=== PATIENT | female | born 1995 | race Hispanic/Latino ===

== ENCOUNTER 2017-12-09 13:04 | Emergency (ER) | payer OTHER ==
[2017-12-09] MEDS ORDERED: ACETAMINOPHEN 500 MG TAB ONE (14:24)
--- NOTE | 2017-12-09 14:26 | RAD REPORT ---
EXAM DESCRIPTION: VAS - Extremity Venous Uni Ltd - 12/09/2017 2:18 pm CLINICAL HISTORY: PAIN Leg swelling and edema. COMPARISON: <Comparisons> FINDINGS: Right lower extremity venous system was interrogated with Doppler technique. Normal flow, compressibility and augmentation was noted. There is no DVT present. IMPRESSION: No evidence of right lower extremity deep venous thrombosis.
--- NOTE | 2017-12-09 14:36 | EDPHYS ---
Physician Documentation [facility] Name: Juanis Chacon Age: 22 yrs Sex: Female : 1995 Arrival Date: 12/09/2017 Time: 13:09 Bed 16 Private MD: None, None ED Physician Marques Faulkner HPI: 12/09 14:00 This 22 yrs old Female presents to ER via Ambulatory with complaints of Right pm1 Leg Swelling. 14:00 The patient presents with pain, swelling. The complaints affect the right lower leg. pm1 Context: The problem was sustained at home, resulted from an unknown cause, Patient denies any trauma, the patient can fully bear weight, the patient is able to ambulate, Problem is a result from a previous injury: No. Onset: The symptoms/episode began/occurred 2 week(s) ago. Modifying factors: The symptoms are alleviated by nothing. the symptoms are aggravated by weight bearing. Associated signs and symptoms: Pertinent negatives calf tenderness, fever, numbness, tingling. Treatment prior to arrival includes: no previous treatment. Severity of symptoms: in the emergency department the symptoms have improved. The patient has not experienced similar symptoms in the past. Patient reports swelling to right lower leg that comes and goes for the past 2-3 weeks. Patient reports swelling is worse after working and being on her feet for extended time. Swelling and pain present only to right lower leg. JUVENILE COUNSELOR: 13:30 LMP 12/07/2017 em Historical: - Allergies: 14:00 No Known Allergies; em - Immunization history:: Adult Immunizations up to date, Pneumococcal vaccine is not up to date, Flu vaccine is not up to date. - Social history:: Smoking status: Patient/guardian denies using tobacco, never smoked. - Ebola Screening: : Patient negative for fever greater than or equal to 101.5 degrees Fahrenheit, and additional compatible Ebola Virus Disease symptoms. ROS: 14:00 Constitutional: Negative for fever, chills, and weight loss, Eyes: Negative for injury, pm1 pain, redness, and discharge, ENT: Negative for injury, pain, and discharge, Neck: Negative for injury, pain, and swelling, Cardiovascular: Negative for chest pain, palpitations, and edema, Respiratory: Negative for shortness of breath, cough, wheezing, and pleuritic chest pain, Abdomen/GI: Negative for abdominal pain, nausea, vomiting, diarrhea, and constipation, Back: Negative for injury and pain. 14:00 Skin: Negative for injury, rash, and discoloration, Neuro: Negative for headache, weakness, numbness, tingling, and seizure. 14:00 MS/extremity: Positive for pain, swelling, of the lateral aspect of right knee, right ankle and right calf, Negative for decreased range of motion, deformity. Exam: 14:00 Constitutional: This is a well developed, well nourished patient who is awake, alert, pm1 and in no acute distress. Head/Face: Normocephalic, atraumatic. Chest/axilla: Normal chest wall appearance and motion. Nontender with no deformity. No lesions are appreciated. Cardiovascular: Regular rate and rhythm with a normal S1 and S2. No gallops, murmurs, or rubs. No pulse deficits. Respiratory: Lungs have equal breath sounds bilaterally, clear to auscultation and percussion. No rales, rhonchi or wheezes noted. No increased work of breathing, no retractions or nasal flaring. Back: No spinal tenderness. No costovertebral tenderness. Full range of motion. Skin: Warm, dry with normal turgor. Normal color with no rashes, no lesions, and no evidence of cellulitis. 14:00 Musculoskeletal/extremity: Extremities: grossly normal except: noted in the right calf: tenderness, noted in the right ankle: tenderness, no evidence of decreased ROM, deformity, swelling. Vital Signs: 13:18 BP 130 / 69; Pulse 68; Resp 17; Temp 98.7; Pulse Ox 99% on R/A; Weight 99.79 kg; rk2 14:30 BP 106 / 72; Pulse 62; Resp 16; Pulse Ox 99% on R/A; Pain 7/10; em MDM: 13:16 Patient medically screened. pm1 14:32 Data reviewed: vital signs. Data interpreted: Pulse oximetry: on room air is 99 %. pm1 Interpretation: normal. Counseling: I had a detailed discussion with the patient and/or guardian regarding: the historical points, exam findings, and any diagnostic results supporting the discharge/admit diagnosis, radiology results, the need for outpatient follow up, to return to the emergency department if symptoms worsen or persist or if there are any questions or concerns that arise at home. 12/09 13:26 Order name: Extremity Venous Uni Ltd ; Complete Time: 14:31 pm1 Administered Medications: 14:25 Drug: Tylenol 500 mg Route: PO; em 14:40 Follow up: Response: No adverse reaction; Pain is decreased em Disposition: 12/10 08:01 Co-signature as Attending Physician, Marques Faulkner MD. Disposition: 12/09/17 14:36 Discharged to Home. Impression: Pain in right lower leg. - Condition is Stable. - Discharge Instructions: Edema, Musculoskeletal Pain. - Work release form, Medication Reconciliation Form, Thank You Letter form. - Follow up: Emergency Department; When: As needed; Reason: Worsening of condition. Follow up: Private Physician; When: As needed; Reason: Recheck today's complaints, Continuance of care, Re-evaluation by your physician. - Problem is new. - Symptoms have improved. Signatures: Dispatcher [employer] EDMS Grupo Blake, DIRECTOR OF SOFTWARE ENGINEERING DIRECTOR OF SOFTWARE ENGINEERING em Jordi Holliday, FURNACE COMBUSTION ANALYST FURNACE COMBUSTION ANALYST pm1 Marques Faulkner MD MD Marjorie Temple RN RN rk2 Corrections: (The following items were deleted from the chart) 12/09 14:58 14:36 12/09/2017 14:36 Discharged to Home. Impression: Pain in right lower leg. em Condition is Stable. Forms are Medication Reconciliation Form, Thank You Letter, Antibiotic Education, Prescription Opioid Use. Follow up: Emergency Department; When: As needed; Reason: Worsening of condition. Follow up: Private Physician; When: As needed; Reason: Recheck today's complaints, Continuance of care, Re-evaluation by your physician. Problem is new. Symptoms have improved. pm1
--- NOTE | 2017-12-09 14:36 | ER ---
Nurse's Notes [facility] Name: Juanis Chacon Age: 22 yrs Sex: Female : 1995 Arrival Date: 12/09/2017 Time: 13:09 Bed 16 Private MD: None, None Diagnosis: Pain in right lower leg Presentation: 12/09 13:15 Presenting complaint: Patient states: arrived by pv. c/o right knee and ankle rk2 pain/swelling x 2+ weeks. Denies trauma. Transition of care: patient was not received from another setting of care. Onset of symptoms was December 09, 2017. Risk Assessment: Do you want to hurt yourself or someone else? Patient reports no desire to harm self or others. Initial Sepsis Screen: Does the patient meet any 2 criteria? No. Patient's initial sepsis screen is negative. Does the patient have a suspected source of infection? No. Patient's initial sepsis screen is negative. Care prior to arrival: None. 13:15 Method Of Arrival: Ambulatory rk2 13:15 Acuity: PATRIC 4 rk2 SKILLED NURSING FACILITIES PROFESSIONAL: 13:30 LMP 12/07/2017 em Historical: - Allergies: 14:00 No Known Allergies; em - Immunization history:: Adult Immunizations up to date, Pneumococcal vaccine is not up to date, Flu vaccine is not up to date. - Social history:: Smoking status: Patient/guardian denies using tobacco, never smoked. - Ebola Screening: : Patient negative for fever greater than or equal to 101.5 degrees Fahrenheit, and additional compatible Ebola Virus Disease symptoms. Screenin:35 Abuse screen: Denies threats or abuse. Nutritional screening: No deficits noted. em Tuberculosis screening: No symptoms or risk factors identified. Fall Risk None identified. Assessment: 13:26 General: Appears in no apparent distress. comfortable, Behavior is calm, cooperative. em Pain: Complains of pain in right knee and anterior aspect of right ankle Pain currently is 8 out of 10 on a pain scale. Pain began 2 weeks. Neuro: Level of Consciousness is awake, alert, obeys commands, Oriented to person, place, time, situation. Cardiovascular: Capillary refill < 3 seconds Patient's skin is warm and dry. Cardiovascular: Denies chest pain. Respiratory: Airway is patent Respiratory effort is even, unlabored, Respiratory pattern is regular, symmetrical, Denies shortness of breath. GI: Abdomen is round non-distended. : No signs and/or symptoms were reported regarding the genitourinary system. EENT: No signs and/or symptoms were reported regarding the EENT system. Derm: Skin is intact, Skin is pink, warm \T\ dry. Musculoskeletal: Range of motion: intact in all extremities. 13:32 General: The previous assessment is accurate, call light remains within reach. . ss Vital Signs: 13:18 BP 130 / 69; Pulse 68; Resp 17; Temp 98.7; Pulse Ox 99% on R/A; Weight 99.79 kg; rk2 14:30 BP 106 / 72; Pulse 62; Resp 16; Pulse Ox 99% on R/A; Pain 7/10; em ED Course: 13:09 Patient arrived in ED. sb2 13:09 None, None is Private Physician. sb2 13:16 Jordi Holliday NP is PHCP. pm1 13:16 Marques Faulkner MD is Attending Physician. pm1 13:17 Triage completed. rk2 13:20 Grupo Blake LVN is Primary Nurse. em 13:35 Patient has correct armband on for positive identification. Bed in low position. Call em light in reach. Adult w/ patient. 13:35 No provider procedures requiring assistance completed. Patient did not have IV access em during this emergency room visit. 13:38 Arm band placed on. em 13:57 Ultrasound completed. Patient tolerated well. sg3 14:18 Extremity Venous Uni Ltd US In Process Unspecified. EDMS Administered Medications: 14:25 Drug: Tylenol 500 mg Route: PO; em 14:40 Follow up: Response: No adverse reaction; Pain is decreased em Outcome: 14:36 Discharge ordered by MD. pm1 14:56 Discharged to home ambulatory. em 14:56 Condition: good 14:56 Discharge instructions given to patient, Instructed on discharge instructions, follow up and referral plans. Demonstrated understanding of instructions, follow-up care. 14:58 Patient left the ED. em Signatures: Dispatcher [employer] EDMS Grupo Blake LVN LVN em Sabiha Darby RN RN Jordi Holliday NP SENIOR PHP SOFTWARE DEVELOPER pm1 Kate Joyce sg3 Marjorie Temple RN RN rk2 Tigist Barroso sb2
== END 2017-12-09 14:58 | disposition home or self-care (01) ==
LOC: ER 13:04
DX: M79.661 Pain in right lower leg (principal)
CPT/HCPCS: 93971; 99283

== ENCOUNTER 2017-12-29 12:19 | Emergency (ER) | payer OTHER ==
--- NOTE | 2017-12-29 14:13 | RAD REPORT ---
EXAM DESCRIPTION: RAD - Ankle Right 3 View - 12/29/2017 2:03 pm CLINICAL HISTORY: Right ankle pain status post fall FINDINGS: No fracture or dislocation is seen.
--- NOTE | 2017-12-29 14:14 | ER ---
Nurse's Notes [facility] Name: Juanis Chacon Age: 22 yrs Sex: Female : 1995 Arrival Date: 12/29/2017 Time: 12:21 Bed 9 Private MD: None, None Diagnosis: Sprain of ankle-Right Presentation: 12/29 12:53 Presenting complaint: Patient states: fall and hurt right ankle 3 days ago, feels like iw spasms, has mild swelling. Transition of care: patient was not received from another setting of care. Onset of symptoms was December 27, 2017. Risk Assessment: Do you want to hurt yourself or someone else? Patient reports no desire to harm self or others. Initial Sepsis Screen: Does the patient meet any 2 criteria? No. Patient's initial sepsis screen is negative. Does the patient have a suspected source of infection? No. Patient's initial sepsis screen is negative. Care prior to arrival: None. 12:53 Method Of Arrival: Ambulatory iw 12:53 Acuity: PATRIC 4 iw Triage Assessment: 15:00 General: Appears in no apparent distress. Behavior is calm, cooperative. iw DORMITORY COUNSELOR: 12:54 LMP 12/15/2017 iw Historical: - Allergies: 12:55 Bromfed DM; iw - Home Meds: 12:55 None [Active]; iw - PMHx: 12:55 None; iw - PSHx: 12:55 None; iw - Immunization history:: Adult Immunizations not up to date. - Social history:: Smoking status: Patient/guardian denies using tobacco. - Ebola Screening: : Patient negative for fever greater than or equal to 101.5 degrees Fahrenheit, and additional compatible Ebola Virus Disease symptoms Patient denies exposure to infectious person Patient denies travel to an Ebola-affected area in the 21 days before illness onset No symptoms or risks identified at this time. Screenin:00 Abuse screen: Denies threats or abuse. Denies injuries from another. Nutritional iw screening: No deficits noted. Tuberculosis screening: No symptoms or risk factors identified. Fall Risk None identified. Assessment: 14:30 General: Appears in no apparent distress. comfortable, Behavior is calm, cooperative. iw Pain: Complains of pain in right lateral malleolus and right medial malleolus Pain currently is 8 out of 10 on a pain scale. Neuro: Level of Consciousness is awake, alert, obeys commands, Oriented to person, place, time, situation, Moves all extremities. Full function. Cardiovascular: Capillary refill < 3 seconds in bilateral fingers Patient's skin is warm and dry. Respiratory: Respiratory effort is even, unlabored, Respiratory pattern is regular. Derm: Skin is pink, warm \T\ dry. normal. Musculoskeletal: Range of motion: intact in all extremities. Vital Signs: 12:54 BP 134 / 60; Pulse 61; Resp 18; Temp 98.1(O); Pulse Ox 100% on R/A; Weight 95.25 kg; iw Height 5 ft. 1 in. (154.94 cm); Pain 8/10; 12:54 Body Mass Index 39.68 (95.25 kg, 154.94 cm) iw ED Course: 12:21 Patient arrived in ED. mr 12:21 None, None is Private Physician. mr 12:54 Triage completed. iw 12:54 Arm band placed on. iw 12:55 Kelsi Golden RN is Primary Nurse. iw 12:58 Wade Soriano PA is PHCP. cp 12:58 Dusty Nunn MD is Attending Physician. cp 14:03 Ankle Right 3 View XRAY In Process Unspecified. EDMS 14:12 Felipe Beverly MD is Referral Physician. cp 14:30 Patient has correct armband on for positive identification. iw 15:10 No provider procedures requiring assistance completed. Patient did not have IV access iw during this emergency room visit. Administered Medications: No medications were administered Outcome: 14:13 Discharge ordered by MD. cp 15:10 Discharged to home ambulatory, with crutches, with family. iw 15:10 Condition: good 15:10 Discharge instructions given to patient, Instructed on discharge instructions, follow up and referral plans. crutch walking, Demonstrated understanding of instructions, follow-up care, crutch walking, Prescriptions given X 1. 15:11 Patient left the ED. iw Signatures: Dispatcher [employer] Elida Newsome mr Kelsi Golden, RN RN iw Wade Soriano PA PA cp
--- NOTE | 2017-12-29 14:14 | EDPHYS ---
Physician Documentation [facility] Name: Juanis Chacon Age: 22 yrs Sex: Female : 1995 Arrival Date: 12/29/2017 Time: 12:21 Bed 9 Private MD: None, None ED Physician Dusty Nunn HPI: 12/29 13:04 This 22 yrs old Female presents to ER via Ambulatory with complaints of Ankle cp Injury. 13:04 The patient presents with an injury, pain, that is acute. The complaints affect the cp right ankle. Onset: The symptoms/episode began/occurred 3 day(s) ago. Context: resulted from fall, The mechanism of injury involved inversion of the affected ankle. The patient can fully bear weight on the affected extremity. the patient is able to ambulate, with mild difficulty. Associated signs and symptoms: Pertinent negatives: calf tenderness, numbness, weakness. Modifying factors: the symptoms are aggravated by weight bearing. ADMISSIONS RN: 12:54 LMP 12/15/2017 iw Historical: - Allergies: 12:55 Bromfed DM; iw - Home Meds: 12:55 None [Active]; iw - PMHx: 12:55 None; iw - PSHx: 12:55 None; iw - Immunization history:: Adult Immunizations not up to date. - Social history:: Smoking status: Patient/guardian denies using tobacco. - Ebola Screening: : Patient negative for fever greater than or equal to 101.5 degrees Fahrenheit, and additional compatible Ebola Virus Disease symptoms Patient denies exposure to infectious person Patient denies travel to an Ebola-affected area in the 21 days before illness onset No symptoms or risks identified at this time. ROS: 13:10 Constitutional: Negative for body aches, chills, fever, poor PO intake. cp 13:10 Eyes: Negative for injury, pain, redness, and discharge. cp 13:10 ENT: Negative for drainage from ear(s), ear pain, sore throat, difficulty swallowing, difficulty handling secretions. 13:10 Neck: Negative for pain with movement, pain at rest, stiffness, tenderness. 13:10 Cardiovascular: Negative for chest pain, palpitations. 13:10 Respiratory: Negative for cough, shortness of breath, wheezing. 13:10 Abdomen/GI: Negative for abdominal pain, nausea, vomiting, and diarrhea. 13:10 MS/extremity: Positive for pain, tenderness, of the right ankle, Negative for decreased range of motion, deformity, paresthesias. 13:10 Skin: Negative for cellulitis, rash. 13:10 Neuro: Negative for headache, numbness, tingling, weakness. 13:10 All other systems are negative. Exam: 13:20 Constitutional: The patient appears in no acute distress, alert, awake, well developed, cp well nourished. 13:20 Head/Face: Normocephalic, atraumatic. cp 13:20 Eyes: Periorbital structures: appear normal, Conjunctiva: normal, no exudate, no injection, Lids and lashes: appear normal, bilaterally. 13:20 ENT: External ear(s): are unremarkable, Nose: is normal, Mouth: is normal, Posterior pharynx: is normal, airway is patent. 13:20 Chest/axilla: Inspection: normal. 13:20 Cardiovascular: Rate: normal. 13:20 Respiratory: the patient does not display signs of respiratory distress, Respirations: normal, no use of accessory muscles, no retractions, no splinting, no tachypnea. 13:20 Musculoskeletal/extremity: Extremities: grossly normal except: noted in the lateral right ankle: tenderness, There is no evidence of decreased ROM, deformity, Perfusion: the extremity is normally perfused throughout, Sensation intact. 13:20 Skin: cellulitis, is not appreciated, no rash present. Vital Signs: 12:54 BP 134 / 60; Pulse 61; Resp 18; Temp 98.1(O); Pulse Ox 100% on R/A; Weight 95.25 kg; iw Height 5 ft. 1 in. (154.94 cm); Pain 8/10; 12:54 Body Mass Index 39.68 (95.25 kg, 154.94 cm) iw MDM: 12:58 Patient medically screened. cp 14:12 Data reviewed: vital signs, nurses notes, radiologic studies, plain films. 12/29 13:06 Order name: Ankle Right 3 View XRAY; Complete Time: 14:14 cp 12/29 14:15 Interpretation: Report reviewed. 12/29 14:09 Order name: Crutches; Complete Time: 14:57 cp 12/29 14:09 Order name: Aircast Ankle Splint; Complete Time: 14:53 cp Administered Medications: No medications were administered Disposition: 12/29/17 14:13 Discharged to Home. Impression: Sprain of ankle - Right. - Condition is Stable. - Discharge Instructions: Elastic Bandage and RICE, Ankle Sprain. - Prescriptions for Naprosyn 500 mg Oral Tablet - take 1 tablet by ORAL route 2 times per day take with food; 20 tablet. - Work release form, Medication Reconciliation Form, Thank You Letter, Antibiotic Education, Prescription Opioid Use form. - Follow up: Felipe Beverly MD; When: 5 - 6 days; Reason: pain continues. - Problem is new. - Symptoms have improved. Addendum: 01/06/2018 20:42 Co-signature as Attending Physician, Dusty Nunn MD I agree with the assessment and [facility] plan of care. Signatures: Dispatcher [employer] EDMS Dusty Nunn MD MD kdr Kelsi Golden RN RN iw Wade Soriano PA PA cp Corrections: (The following items were deleted from the chart) 12/29 15:11 14:13 12/29/2017 14:13 Discharged to Home. Impression: Sprain of ankle - Right. iw Condition is Stable. Forms are Medication Reconciliation Form, Thank You Letter, Antibiotic Education, Prescription Opioid Use. Follow up: Felipe Beverly; When: 5 - 6 days; Reason: pain continues. Problem is new. Symptoms have improved. cp
== END 2017-12-29 15:11 | disposition home or self-care (01) ==
LOC: ER 12:19
DX: S93.401A Sprain of unspecified ligament of right ankle, initial encounter (principal); X58.XXXA Exposure to other specified factors, initial encounter; Y93.9 Activity, unspecified; Y92.9 Unspecified place or not applicable; Z88.8 Allergy status to other drugs, medicaments and biological substances
CPT/HCPCS: 99283

== ENCOUNTER 2018-02-13 08:35 | Emergency (ER) | payer OTHER ==
--- OUTSIDE RECORDS SUMMARY | 2018-02-13 08:36 | XMS REPORT ---
:1995 Author Organization [employer] Care Team Providers Name Role Phone Ulises Easleyswinder Provider Role Unavailable Allergies, Adverse Reactions, Alerts Substance Reaction Event Type N.K.D.A. Info Not Available Non Drug Allergy Problems Problem Type Condition Code Onset Dates Condition Status Assessment Encounter to determine O36.80X0 Active viability of , single or unspecified fetus Assessment Encounter for gynecological Z01.419 Active examination without abnormal finding Assessment Well woman exam with routine Z01.419 Active gynecological exam Assessment Body mass index (BMI) of 40.1 to Z68.41 Active 44.9 in adult Assessment Diabetes mellitus affecting O24.911 Active in first trimester Assessment Encounter for supervision of Z34.01 Active normal first in first trimester Problem Encounter for supervision of Z34.01 Active normal first in first trimester Problem Encounter for gynecological Z01.419 Active examination without abnormal finding Problem Well woman exam with routine Z01.419 Active gynecological exam Problem Encounter to determine O36.80X0 Active viability of , single or unspecified fetus Problem Body mass index (BMI) of 40.1 to Z68.41 Active 44.9 in adult Problem Diabetes mellitus affecting O24.911 Active in first trimester Medications No Known Medications Results Name Result Date Reference Range Unit Abnormality Flag TEST URINE ----RESULTS POS 20171231 URINALYSIS AUTO W/O SCOPE (33000) ----PROTEIN NEG 20171231 ----pH 6.5 20171231 ----NIT NEG 20171231 ----GAURAV NEG 20171231 ----URO 0.2 20171231 ----SPECIFIC GRAVITY 1.020 20171231 ----BLO NEG 20171231 ----BILIRUBIN NEG 20171231 ----KETONES NEG 20171231 ----GLUCOSE 2+ 20171231 Summary Purpose [employer] Submission
--- OUTSIDE RECORDS SUMMARY | 2018-02-13 08:37 | XMS REPORT ---
:1995 Author Organization [employer] Care Team Providers Name Role Phone Oneyda Marie Provider Role Unavailable Allergies, Adverse Reactions, Alerts Substance Reaction Event Type Bromfed throw up blood Drug Allergy Spinach hives Non Drug Allergy Problems Problem Type Condition Code Onset Dates Condition Status Assessment Pre-existing type 2 diabetes O24.111 Active mellitus during in first trimester Problem Encounter for supervision of Z34.01 Active normal first in first trimester Assessment Body mass index (BMI) of 40.0-44.9 Z68.41 Active in adult Assessment Morbid (severe) obesity due to E66.01 Active excess calories Problem Body mass index (BMI) of 40.0-44.9 Z68.41 Active in adult Problem Body mass index (BMI) of 40.1 to Z68.41 Active 44.9 in adult Problem Morbid (severe) obesity due to E66.01 Active excess calories Problem Encounter for gynecological Z01.419 Active examination without abnormal finding Problem Well woman exam with routine Z01.419 Active gynecological exam Problem Diabetes mellitus affecting O24.911 Active in first trimester Problem Encounter to determine O36.80X0 Active viability of , single or unspecified fetus Medications Medication Code Code Instructions Start End Status Dosage System Date Date NovoLIN N ND [id number] 100 UNIT/ML January 03, Active 7 units bid ReliOn Subcutaneous BID 2017 BD Insulin [facility] [id number] 31G X 5/16" 0.3 January 03, Active as directed Syringe ML SubQ BID 2018 Half-Unit [facility] [id number] 28-0.8 MG Orally Active 1 tablet Once a day Results No Known Results Summary Purpose [employer] Submission
--- OUTSIDE RECORDS SUMMARY | 2018-02-13 08:37 | XMS REPORT ---
:1995 Author Organization [employer] Care Team Providers Name Role Phone Wesley Easley Provider Role Unavailable Allergies No Known Allergies Problems Problem Type Condition Code Onset Dates Condition Status Problem Encounter for supervision of Z34.01 Active [...] affecting O24.911 Active in first trimester Medications Medication Code Code Instructions Start End Status Dosage System Date Date CitraNatal 90 [facility] [id number] 90-1 & 300 MG January 04, Active as directed DHA Orally once a 2017 DAY Results No Known Results Summary Purpose [employer] Submission
--- OUTSIDE RECORDS SUMMARY | 2018-02-13 08:37 | XMS REPORT ---
:1995 Author Organization eClinicalWorks Care Team Providers Name Role Phone Oneyda Marie Provider Role Unavailable Allergies, Adverse Reactions, Alerts Substance Reaction Event Type Bromfed throw up blood Drug Allergy Spinach hives Non Drug Allergy Problems Problem Type Condition Code Onset Dates Condition Status Problem Diabetes mellitus affecting O24.911 Active in first trimester Problem Encounter to determine O36.80X0 Active viability of , single or unspecified fetus Assessment Diabetes mellitus affecting O24.911 Active in first trimester Assessment Type 2 diabetes mellitus without E11.9 Active complication, without long-term current use of insulin Problem Body mass index (BMI) of 40.0-44.9 Z68.41 Active in adult Problem Morbid (severe) obesity due to E66.01 Active excess calories Problem Type 2 diabetes mellitus without E11.9 Active complication, without long-term current use of insulin Problem Encounter for supervision of Z34.01 Active normal first in first trimester Problem Body mass index (BMI) of 40.1 to Z68.41 Active 44.9 in adult Problem Encounter for gynecological Z01.419 Active examination without abnormal finding Problem Well woman exam with routine Z01.419 Active gynecological exam Medications Medication Code Code Instructions Start End Status Dosage System Date Date CitraNatal 90 [facility] [id number] 90-1 & 300 MG January 04, Active as directed DHA Orally once a 2018 DAY BD Insulin ND 67294974663 31G X 5/16 SubQ January 03, Active as directed Syringe BID 2018 Half-Unit NovoLIN N ND 40010171192 100 UNIT/ML January 03, Active 7 units bid ReliOn Subcutaneous BID 2018 [facility] 36602212833 28-0.8 MG Orally Active 1 tablet Once a day Results No Known Results Summary Purpose [employer]ClinicalWorks Submission
--- OUTSIDE RECORDS SUMMARY | 2018-02-13 08:37 | XMS REPORT ---
:1995 Author Organization eClinicalWorks Care Team Providers Name Role Phone Wesley Easley Provider Role Unavailable Allergies No Known Allergies Problems Problem Type Condition Code Onset Dates Condition Status Problem Encounter for supervision of Z34.01 Active normal first in first trimester Problem Body mass index (BMI) of 40.0-44.9 [...] of , single or unspecified fetus Medications No Known Medications Results No Known Results Summary Purpose [employer] Submission
--- OUTSIDE RECORDS SUMMARY | 2018-02-13 08:37 | XMS REPORT ---
:1995 Author Organization e[employer]Works Care Team Providers Name Role Phone HunnewellSavanna pikey Provider Role Unavailable Allergies, Adverse Reactions, Alerts Substance Reaction Event Type Bromfed throw up blood Drug Allergy Spinach hives Non Drug Allergy Problems Problem Type Condition Code Onset Dates Condition Status Problem Diabetes mellitus affecting O24.911 Active in first trimester Problem Encounter to determine O36.80X0 Active viability of , single or unspecified fetus Assessment Type 2 diabetes mellitus without E11.9 Active complication, without long-term current use of insulin Assessment Diabetes mellitus affecting O24.911 Active in first trimester Problem Body mass index [...] Status Dosage System Date Date NovoLIN N [facility] [id number] 100 UNIT/ML January 03, Active 13 units ReliOn Subcutaneous 2018 bid BID CitraNatal [address] [facility] [id number] 90-1 & 300 MG January 04, Active as directed DHA Orally once a 2018 DAY ND 76265642690 28-0.8 MG Active 1 tablet Orally Once a day BD Insulin ND 64843655453 31G X 16 SubQ January 03, Active as directed Syringe BID 2018 Half-Unit Results No Known Results Summary Purpose eClinicalWorks Submission
--- OUTSIDE RECORDS SUMMARY | 2018-02-13 08:37 | XMS REPORT ---
:1995 Author Organization eClinicalWorks Care Team Providers Name Role Phone Wesley Easley Provider Role Unavailable Allergies, Adverse Reactions, Alerts Substance Reaction Event Type Spinach hives Non Drug Allergy Problems Problem Type Condition Code Onset Dates Condition Status Problem Diabetes mellitus affecting O24.911 Active in first trimester Problem Encounter to determine O36.80X0 Active viability of , single or unspecified fetus Problem Body mass index (BMI) of 40.0-44.9 [...] with routine Z01.419 Active gynecological exam Assessment Morbid (severe) obesity due to E66.01 Active excess calories Assessment Body mass index (BMI) of 40.1 to Z68.41 Active 44.9 in adult Assessment Diabetes mellitus affecting O24.911 Active in first trimester Assessment Type 2 diabetes mellitus without E11.9 Active complication, without long-term current use of insulin Assessment Encounter for supervision of Z34.01 Active normal first in first trimester Medications Medication Code System Code Instructions Start Date End Date Status Dosage NDC 0 Active not defined Results No Known Results Summary Purpose [employer] Submission
--- OUTSIDE RECORDS SUMMARY | 2018-02-13 08:37 | XMS REPORT ---
:1995 Author Organization eClinicalWorks Care Team Providers Name Role Phone Oneyda Marie Provider Role Unavailable Allergies No Known Allergies [...] Medications Results No Known Results Summary Purpose [employer]ClinicalWorks Submission
[2018-02-13 09:54] LABS: Absolute Lymphocytes (CBC) 1.9 K/uL (0.7-4.9); Absolute Monocytes 0.5 K/uL (0.1-1.3); Absolute Neutrophil 6.9 K/uL (1.8-8.0); Basophils % 0.3 % (0-1.3); Eosinophils % 1.3 % (0-4.4); Hematocrit 39.8 % (36.0-45.0); Lymphocytes % 20.4 % (15.3-44.8); MCH 30.3 pg (27.0-35.0); MCV 88.7 fL (80-100); Monocytes % 5.4 % (3.3-12.3); RBC Red Blood Cell Count 4.49 M/uL (3.86-4.86)
[2018-02-13 10:16] LABS: Urine Blood NEGATIVE (NEG); Urine Glucose TRACE (NEG); Urine Protein NEGATIVE (NEG); Urine Specific Gravity 1.025 (1.005-1.030)
--- NOTE | 2018-02-13 10:21 | RAD REPORT ---
EXAM DESCRIPTION: US - Transvaginal OB - 02/13/2018 9:40 am CLINICAL HISTORY: Abdominal pain, pelvic pain, spotting, positive COMPARISON: January 18 FINDINGS: Uterus measures 11 x 7 x 7.5 cm. No myometrial mass. Single intrauterine gestation is iden tified. Amagon-rump length measurement corresponds to 11 weeks 0 days. Calculated MARCY is 09/04/2018. H eart rate is 175 BPM. No gross abnormality seen. No hematoma or mass within the endometrial cav ity. Cervical canal appears to be closed. Trace amount of free fluid is present in the cul-de-sac not regarded as significant. Both ovaries are identifiable. Doppler evaluation shows blood flow within the ovarian stroma. No suspicious adnexal f inding. IMPRESSION: Single 11 week 0 day IUP showing appropriate growth since the January 18 study. Heart rate is normal. Calculated MARCY is 09/04/2018. No hematoma, mass or other suspicious intrauterine or adnexal finding.
--- NOTE | 2018-02-13 10:26 | EDPHYS ---
Physician Documentation [facility] Name: Juanis Chacon Age: 22 yrs Sex: Female : 1995 Arrival Date: 02/13/2018 Time: 08:38 Bed 17 Private MD: None, None ED Physician Juan Cuellar HPI: 02/13 08:59 This 22 yrs old Female presents to ER via Ambulatory with complaints of jr8 Vaginal Bleeding, + Preg <12wks, Abdominal Pain. 08:59 The patient presents to the emergency department with abdominal pain, of the lower, jr8 that started yesterday, described as crampy, vaginal bleeding, described as spotting. The estimated gestational age is 11 weeks. course: care: private OB physician, Leakage of Fluid: none appreciated. Associated signs and symptoms: The patient has no apparent associated signs or symptoms. The patient has experienced a previous episode. Patient has history of miscarriage in past. Has had cramping since yesterday. Now with spotting. ONLINE EDUCATION MANAGER: 08:55 LMP 11/17/2017 tw2 08:59 2, Full Term 0, Premature 0, 1, Living 0 jr8 Historical: - Allergies: 08:57 Bromfed DM; tw2 08:57 Pseudoephedrine; tw2 08:57 dextromethorphan; tw2 - Home Meds: 08:57 Novolin N 100 unit/mL Sub-Q susp [Active]; "unknown insulin" [Active]; tw2 - PMHx: 08:57 Diabetes - IDDM; tw2 - PSHx: 08:57 None; tw2 - Immunization history:: Adult Immunizations up to date. - Social history:: Smoking status: Patient/guardian denies using tobacco. - Ebola Screening: : Patient denies travel to an Ebola-affected area in the 21 days before illness onset. ROS: 08:59 Eyes: Negative for injury, pain, redness, and discharge, ENT: Negative for injury, jr8 pain, and discharge, Neck: Negative for injury, pain, and swelling, Cardiovascular: Negative for chest pain, palpitations, and edema, Respiratory: Negative for shortness of breath, cough, wheezing, and pleuritic chest pain, Abdomen/GI: Negative for abdominal pain, nausea, vomiting, diarrhea, and constipation, Back: Negative for injury and pain, MS/Extremity: Negative for injury and deformity, Skin: Negative for injury, rash, and discoloration, Neuro: Negative for headache, weakness, numbness, tingling, and seizure. 08:59 : Positive for pelvic pain, vaginal bleeding, Negative for urinary symptoms, vaginal discharge, vaginal itching. Exam: 08:59 Eyes: Pupils equal round and reactive to light, extra-ocular motions intact. Lids and jr8 lashes normal. Conjunctiva and sclera are non-icteric and not injected. Cornea within normal limits. Periorbital areas with no swelling, redness, or edema. ENT: Nares patent. No nasal discharge, no septal abnormalities noted. Tympanic membranes are normal and external auditory canals are clear. Oropharynx with no redness, swelling, or masses, exudates, or evidence of obstruction, uvula midline. Mucous membranes moist. Neck: Trachea midline, no thyromegaly or masses palpated, and no cervical lymphadenopathy. Supple, full range of motion without nuchal rigidity, or vertebral point tenderness. No Meningismus. Cardiovascular: Regular rate and rhythm with a normal S1 and S2. No gallops, murmurs, or rubs. Normal PMI, no JVD. No pulse deficits. Respiratory: Lungs have equal breath sounds bilaterally, clear to auscultation and percussion. No rales, rhonchi or wheezes noted. No increased work of breathing, no retractions or nasal flaring. Abdomen/GI: Soft, non-tender, with normal bowel sounds. No distension or tympany. No guarding or rebound. No evidence of tenderness throughout. Back: No spinal tenderness. No costovertebral tenderness. Full range of motion. Skin: Warm, dry with normal turgor. Normal color with no rashes, no lesions, and no evidence of cellulitis. MS/ Extremity: Pulses equal, no cyanosis. Neurovascular intact. Full, normal range of motion. Neuro: Awake and alert, GCS 15, oriented to person, place, time, and situation. Cranial nerves II-XII grossly intact. Motor strength 5/5 in all extremities. Sensory grossly intact. Cerebellar exam normal. Normal gait. Vital Signs: 08:55 BP 126 / 55; Pulse 67; Resp 18; Temp 98.3(O); Pulse Ox 98% on R/A; Pain 3/10; tw2 10:12 BP 106 / 46; Pulse 67; Resp 17; Pulse Ox 100% on R/A; tw2 MDM: 08:56 Patient medically screened. [facility] 10:24 Data reviewed: vital signs, nurses notes, lab test result(s), radiologic studies, [facility] ultrasound, and as a result, I will discharge patient. Data interpreted: Pulse oximetry: on room air is 100 %. Interpretation: normal. Counseling: I had a detailed discussion with the patient and/or guardian regarding: the historical points, exam findings, and any diagnostic results supporting the discharge/admit diagnosis, lab results, radiology results, the need for outpatient follow up, an OB/Gyne specialist. ED course: Discussed with patient that she needs to hydrate. Tylenol for pain. Pelvic rest for next couple of weeks and to f/u with OB. Good with plan and will be discharged . 02/13 08:57 Order name: Quantitative Hcg [facility] 02/13 08:57 Order name: Abo/rh Typing; Complete Time: 10:24 [facility] 02/13 08:57 Order name: Basic Metabolic Panel [facility] 02/13 08:57 Order name: CBC with Diff; Complete Time: 10:03 [facility] 02/13 09:21 Order name: Urine Dipstick--Ancillary (enter results); Complete Time: 10:24 bd 02/13 09:21 Order name: Urine --Ancillary (enter results); Complete Time: 10:24 bd 02/13 08:57 Order name: Urine Test (obtain specimen); Complete Time: 09:10 [facility] 02/13 08:57 Order name: IV Saline Lock; Complete Time: 09:39 [facility] 02/13 08:57 Order name: Labs collected and sent; Complete Time: 09:39 [facility] 02/13 08:57 Order name: NPO; Complete Time: 09:22 [facility] 02/13 08:57 Order name: Urine Dipstick-Ancillary (obtain specimen); Complete Time: 09:10 [facility] 02/13 08:57 Order name: US Transvaginal Ob; Complete Time: 10:24 [facility] Administered Medications: No medications were administered Point of Care Testing: Urine : 10:15 hCG Reading: Positive; tw2 Disposition: 12:39 Co-signature as Attending Physician, Juan Cuellar MD. rn Disposition: 02/13/18 10:25 Discharged to Home. Impression: Threatened . - Condition is Stable. - Discharge Instructions: Threatened Miscarriage, Vaginal Bleeding During , First Trimester, Pelvic Rest. - Medication Reconciliation Form, Thank You Letter, Antibiotic Education, Prescription Opioid Use, Family Work Release form. - Follow up: Private Physician; When: 2 - 3 days; Reason: Recheck today's complaints, Continuance of care, Re-evaluation by your physician. - Problem is new. - Symptoms have improved. Signatures: Dispatcher [employer] EDMS Juan Cuellar MD MD rn Roszak, Josh, PA PA jr8 Preeti Paez RN RN tw2 Corrections: (The following items were deleted from the chart) 10:30 10:25 02/13/2018 10:25 Discharged to Home. Impression: Threatened . Condition tw2 is Stable. Forms are Family Work Release, Medication Reconciliation Form, Thank You Letter, Antibiotic Education, Prescription Opioid Use. Follow up: Private Physician; When: 2 - 3 days; Reason: Recheck today's complaints, Continuance of care, Re-evaluation by your physician. Problem is new. Symptoms have improved. jr8
--- NOTE | 2018-02-13 10:26 | ER ---
Nurse's Notes [facility] Name: Juanis Chacon Age: 22 yrs Sex: Female : 1995 Arrival Date: 02/13/2018 Time: 08:38 Bed 17 Private MD: None, None Diagnosis: Threatened Presentation: 02/13 08:54 Presenting complaint: Patient states: i have been cramping and spotting for a while tw2 now, i am diabetic but i have miscarried before so i wanted to get checked out, miscarriage approx 1 year ago. Transition of care: patient was not received from another setting of care. Onset of symptoms was February 13, 2018. Risk Assessment: Do you want to hurt yourself or someone else? Patient reports no desire to harm self or others. Initial Sepsis Screen: Does the patient meet any 2 criteria? No. Patient's initial sepsis screen is negative. Does the patient have a suspected source of infection? No. Patient's initial sepsis screen is negative. Care prior to arrival: None. 08:54 Method Of Arrival: Ambulatory tw2 08:54 Acuity: PATRIC 3 tw2 APPLICATIONS SUPPORT LEAD: 08:55 LMP 11/17/2017 tw2 08:59 2, Full Term 0, Premature 0, 1, Living 0 jr8 Historical: - Allergies: 08:57 Bromfed DM; tw2 08:57 Pseudoephedrine; tw 08:57 dextromethorphan; tw2 - Home Meds: 08:57 Novolin N 100 unit/mL Sub-Q susp [Active]; "unknown insulin" [Active]; tw - PMHx: 08:57 Diabetes - IDDM; tw - PSHx: 08:57 None; tw2 - Immunization history:: Adult Immunizations up to date. - Social history:: Smoking status: Patient/guardian denies using tobacco. - Ebola Screening: : Patient denies travel to an Ebola-affected area in the 21 days before illness onset. Screenin:55 Abuse screen: Denies threats or abuse. Nutritional screening: No deficits noted. tw2 Tuberculosis screening: No symptoms or risk factors identified. Fall Risk None identified. Assessment: 09:00 Obstetrical Assessment: Patient reports vaginal spotting of blood and cramps that come tw2 and go. General: Appears in no apparent distress. obese, Behavior is calm, cooperative, appropriate for age. Pain: Complains of pain in pelvis. Neuro: Level of Consciousness is awake, alert, obeys commands, Oriented to person, place, time, situation. Cardiovascular: Denies chest pain, shortness of breath, Heart tones S1 S2 Patient's skin is warm and dry. Respiratory: Airway is patent Respiratory effort is even, unlabored, Respiratory pattern is regular, symmetrical, Breath sounds are clear bilaterally. GI: No signs and/or symptoms were reported involving the gastrointestinal system. Abdomen is round non-distended, obese, Bowel sounds present X 4 quads. : No signs and/or symptoms were reported regarding the genitourinary system. Reports vaginal bleeding that is bright red, spotty. Musculoskeletal: Circulation, motion, and sensation intact. Capillary refill < 3 seconds, Range of motion: intact in all extremities. 10:12 Reassessment: Patient appears in no apparent distress at this time. No changes from tw2 previously documented assessment. Patient and/or family updated on plan of care and expected duration. Pain level reassessed. Patient is alert, oriented x 3, equal unlabored respirations, skin warm/dry/pink. 10:30 Reassessment: Patient appears in no apparent distress at this time. No changes from tw2 previously documented assessment. Patient and/or family updated on plan of care and expected duration. Pain level reassessed. Patient is alert, oriented x 3, equal unlabored respirations, skin warm/dry/pink. Vital Signs: 08:55 BP 126 / 55; Pulse 67; Resp 18; Temp 98.3(O); Pulse Ox 98% on R/A; Pain 3/10; tw2 10:12 BP 106 / 46; Pulse 67; Resp 17; Pulse Ox 100% on R/A; tw2 Vitals: 08:57 Heart Tones na. tw2 ED Course: 08:38 Patient arrived in ED. mr 08:38 None, None is Private Physician. mr 08:39 Darci Dias PA is PHCP. jr8 08:39 Juan Cuellar MD is Attending Physician. jr8 08:53 Preeti Paez, SHAILESH is Primary Nurse. tw2 08:55 Triage completed. tw2 08:55 Arm band placed on. tw2 08:57 Bed in low position. Call light in reach. Adult w/ patient. Pulse ox on. NIBP on. tw2 09:02 Patient taken to ultrasound. aa4 09:38 Initial lab(s) drawn, by me, sent to lab. Inserted saline lock: 20 gauge in right dh3 antecubital area, using aseptic technique. Blood collected. 09:40 US Transvaginal Ob In Process Unspecified. EDMS 10:15 No provider procedures requiring assistance completed. tw2 10:30 IV discontinued, intact, bleeding controlled, No redness/swelling at site. Pressure tw2 dressing applied. Administered Medications: No medications were administered Point of Care Testing: Urine : 10:15 hCG Reading: Positive; tw2 Outcome: 10:25 Discharge ordered by . jr8 10:30 Discharged to home ambulatory, with significant other. tw2 10:30 Condition: stable 10:30 Discharge instructions given to patient, significant other, Instructed on discharge instructions, follow up and referral plans. Demonstrated understanding of instructions, follow-up care. 10:30 Patient left the ED. tw2 Signatures: Dispatcher [employer] Elida Luevano Amanda aa4 Darci Dias PA PA jr8 Preeti Paez, RN RN tw2 Matilda Alston 3
[2018-02-13 10:43] LABS: BUN Blood Urea Nitrogen 5 mg/dL (7-18); Bicarbonate 29 mmol/L (21-32); Glucose Level 138 mg/dL (74-106); Potassium 3.6 mmol/L (3.5-5.1); Sodium Level 138 mmol/L (136-145)
== END 2018-02-13 10:30 | disposition home or self-care (01) ==
LOC: ER 08:35
DX: O20.0 Threatened abortion (principal); O24.311 Unspecified pre-existing diabetes mellitus in pregnancy, first trimester; E11.9 Type 2 diabetes mellitus without complications; Z3A.11 11 weeks gestation of pregnancy; Z79.4 Long term (current) use of insulin; Z88.8 Allergy status to other drugs, medicaments and biological substances
CPT/HCPCS: 36415; 76817; 80048; 81003; 81025; 84702; 85025; 86900; 86901; 99284